=== PATIENT | male | born 1940 | race Caucasian/White ===

== ENCOUNTER → 2021-06-29 10:38 | Outpatient (BNVA) | payer MEDICARE, OTHER, SELFPAY | PROVIDERS: PCP Internal Medicine; Visit Provider Hospitalist | DX: R91.8 Other nonspecific abnormal finding of lung field (principal); J44.9 Chronic obstructive pulmonary disease, unspecified; R06.00 Dyspnea, unspecified; I48.91 Unspecified atrial fibrillation; I51.7 Cardiomegaly | CPT/HCPCS: 99202 ==

== ENCOUNTER → 2021-10-23 10:44 | Outpatient (BNVA) | payer MEDICARE, OTHER, SELFPAY | PROVIDERS: PCP Internal Medicine; Visit Provider Hospitalist | DX: J44.9 Chronic obstructive pulmonary disease, unspecified (principal); R91.8 Other nonspecific abnormal finding of lung field; R06.00 Dyspnea, unspecified; I48.91 Unspecified atrial fibrillation; I51.7 Cardiomegaly; G47.33 Obstructive sleep apnea (adult) (pediatric) | CPT/HCPCS: 99212 ==

== ENCOUNTER → 2022-07-02 13:55 | Outpatient (BNVA) | payer MEDICARE, SELFPAY | PROVIDERS: PCP Internal Medicine; Visit Provider Hospitalist | DX: J44.9 Chronic obstructive pulmonary disease, unspecified (principal); R91.8 Other nonspecific abnormal finding of lung field; R06.00 Dyspnea, unspecified; I48.91 Unspecified atrial fibrillation; I51.7 Cardiomegaly; G47.33 Obstructive sleep apnea (adult) (pediatric) | CPT/HCPCS: 99212 ==

== ENCOUNTER → 2022-12-31 09:50 | Outpatient (BNVA) | payer MEDICARE, SELFPAY | PROVIDERS: PCP Internal Medicine; Visit Provider Hospitalist | DX: R91.8 Other nonspecific abnormal finding of lung field (principal); J44.9 Chronic obstructive pulmonary disease, unspecified; R06.00 Dyspnea, unspecified; I48.91 Unspecified atrial fibrillation; I51.7 Cardiomegaly; G47.33 Obstructive sleep apnea (adult) (pediatric) | CPT/HCPCS: 99212 ==

== ENCOUNTER 2023-08-13 09:37 | Outpatient (AMB) | payer MEDICARE, SELFPAY ==
--- NOTE | 2023-08-13 09:54 | A.OFFVIS_ITS ---
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 The patient is complaining of dyspnea on exertion. Moderate severity. He was evaluated With pulmonary function studies. I personally reviewed them. He appears to have a reversible obstruction based on the fact that his FEV1 pre bronchodilators is 69% and improved to 74% after bronchodilators were administered. This suggest hyperreactive airways which are seen with asthma. In addition to that he does have a mild restrictive ventilatory defect. He did have a CT scan of the chest done as part of the evaluation. I did review the CT scan report closely with the patient. It appears that he does have some areas of scarring and atelectasis which could be indeed some degree of pneumoconiosis although no asbestos plaques mention. It was mentioned that the patient does have increased cardiac size moderate in severity. 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 Also part of the workup included a nuclear stress test. This is done back in December 2020 which demonstrated some reversible changes. He is on cardioprotective medications including metoprolol. therefore, will hold off on beta blockers so we do not cause any increased cardiac irritability. but same token and the patient continues to be symptomatic it may be too that he may be sensitive to the metoprolol also increasing the risk of airway obstruction. will provide him with copies of the stress test and a CT scan to the patient and he will be able discussing further with Cardiology. 10/23/2021 the patient is here for a pulmonary follow-up visit. Overall the patient has been doing better. He is responding well to the Spiriva. He is also using his Symbicort as needed. Unfortunately, [facility] and he would likely have to change to a different agent such as Wixela when he runs out. Cardiac status has been stable. Patient does have a history of sleep apnea. He had a CPAP machine that is very old. He may look into registering the machine to see if his able to get a replacement machine based on the recall. In the meantime the patient has not been using any PAP therapy for some time. He denies any daytime drowsiness. At this point the patient does have a history of cardiac disease therefore I will have him do an overnight oximetry see if he has any evidence of tachycardia or hypoxia to suggest active sleep apnea. The patient would like to hold off on a formal sleep study at this time. However, if the overnight oximetry is abnormal then we should follow it up with a formal sleep study. 07/02/2022 the patient is here for a pulmonary follow-up visit. Overall he is feeling better. He was having increasing chest congestion shortness of breath. He did follow-up with primary care doctor who started her back on Spiriva. He had been on Symbicort Spiriva but then stop the inhalers as he was feeling better. Seems to be doing just fine on just Spiriva so will continue that for now. We did follow-up with his overnight oximetry. The patient did have some minimal degree of desaturation where he spent about 6 minutes below 88%. I did recommend patient undergo a sleep study. He does have a history of sleep apnea. Although he does not uses CPAP. Patient does have an elevated [place] score of 9/24. Although the patient is reluctant to have a sleep study at this time. We did talk about a mouth device. The patient already has a mouth guard. We did talk about elastic mandibular advancing devices that he get for the dentist and may provide him some support to his sleep apnea symptoms and findings. However, he understands that the goal standard will be going back to the CPAP therefore her consider doing a sleep study let me know. We again looked at his last CT scan back in May 2021. He has multiple pulmonary nodules. His CT scan was [facility]. The patient does need to have a repeat CT scan at this time. He is agreeable to do so but he would like to do a closer to home in [place]. 12/31/2022 the patient is here for pulmon jagdish follow-up visit. The patient overall is doing well. He has stopped the Spiriva for some time. Folic does affecting his bladder. He recently was seen by Urology was placed on Flomax along with finasteride. Seems like he is getting good flows at this time. Off the Spiriva he felt that his breathing got worse. The patient also gets shortness of breath when trying to tie his shoes or laying down flat. Explained to him that this is due to his of increased abdominal pressure. The patient has been trying to walk regularly although he does have significant issues with his hips. The patient did have a CT scan of the chest that I personally viewed. Appears that his pulmonary nodules are stable which is reassuring. The patient will go ahead and restart the Spiriva every other day and see if this is effective for his breathing and hopefully does not affect his system. If any issues arise patient is call the office. 08/13/2023 the patient is here for pulmonary follow-up visit. Overall the patient has been doing well from a respiratory status. He did stop the Spiriva altogether because the issues with urinary retention. Seems to be doing fairly well off the inhalers per the patient. He also had a CT scan of the chest personally by me demonstrating no significant pulmonary nodules. Overall reassuring. No further CT scans to follow-up pulmonary nodules necessary. Although was noted on the report that he has dilated ascending aorta measuring 4 cm in size. 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 I did reassure him that this has not changed when compared to his previous CT scan which is reassuring. Still something that should be monitor. His blood pressure is stable. On examination he did have some wheezing on examination. I did offer him to have a rescue inhaler but he opted to think about it since he is feeling well. I did give him a prescription on paper if he changes his mind. He can also call the office so we can provide him with prescriptions to the pharmacy if that is the case. Otherwise the patient is doing well will follow-up in a year's time. [facility] Medical History (Updated 08/13/23 @ 17:23 by Scott Peters MD) Ascending aorta dilatation LATOYA (obstructive sleep apnea) Cardiomegaly Afib Dyspnea Pulmonary nodules COPD (chronic obstructive pulmonary disease) Social History (Updated 10/23/21 @ 11:25 by FREDIS Marcos) Patient Tobacco Use Status: Never used Tobacco Review of Systems Const Denies night sweats ENT Denies change in voice, Denies lip swelling, Denies mouth pain, Reports nasal congestion, Reports nasal discharge and Denies tongue swelling Card Denies chest pain and Denies dyspnea on exertion Resp Denies cough and Denies dyspnea on exertion GI Denies abdominal pain Musc Denies no additional complaints Neuro Denies Neuro-related abnormal movements Psych Denies no additional complaints Hamzah/Lymph Denies easy bleeding and Denies lymphadenopathy Aller/Immun Denies lip swelling and Denies tongue swelling Physical Exam Vital Signs: Last Vital Signs Pulse 71 08/13/23 09:56 BP 124/60 08/13/23 09:56 Pulse Ox 95 08/13/23 09:56 Oxygen Delivery Method Room Air 08/13/23 09:56 BMI result Body Mass Index 35.2 Const General: alert HEENT Head: Yes normocephalic Neck Neck: Yes normal visual inspection, Yes full ROM and Yes no lymphadenopathy Chest Chest palpation & inspection: normal inspection of the chest Resp Effort & Inspection: normal respiratory effort Auscultation: wheezes and diminished lung sounds Cardio Rate: regular rate Rhythm: regular rhythm Heart sounds: S1 normal heart sound present and S2 normal heart sound present GI Palpation (GI): Soft to palpation and nontender Auscultation: normal bowel sounds Skin General skin exam: rashes and/or lesions noted Extrem General: Yes no clubbing, cyanosis or edema Assessment & Plan Assessment & Plan (1) COPD (chronic obstructive pulmonary disease): Code(s): J44.9 - Chronic obstructive pulmonary disease, unspecified Qualifiers: COPD type: chronic bronchitis Chronic bronchitis type: simple Qualified Code(s): J41.0 - Simple chronic bronchitis (2) Pulmonary nodules: Code(s): R91.8 - Other nonspecific abnormal finding of lung field (3) Dyspnea: Comment: better Code(s): R06.00 - Dyspnea, unspecified Qualifiers: Dyspnea type: dyspnea on exertion Qualified Code(s): R06.09 - Other forms of dyspnea (4) Afib: Code(s): I48.91 - Unspecified atrial fibrillation Qualifiers: Atrial fibrillation type: unspecified Qualified Code(s): I48.91 - Unspecified atrial fibrillation (5) Cardiomegaly: Code(s): I51.7 - Cardiomegaly (6) LATOYA (obstructive sleep apnea): Code(s): G47.33 - Obstructive sleep apnea (adult) (pediatric) (7) Ascending aorta dilatation: Code(s): I77.810 - Thoracic aortic ectasia Plan stopped SPIRIVA due to adverse effecr stopped Symbicort should use SUDHEER as needed CT chest stable consider Home PSG F/U with Cardiology re: dilated ascendming Aorta F/U 10-12 months Medications: New levalbuterol tartrate 45 mcg/actuation (Xopenex HFA) 2 puffs inhalation Q6H 30 days PRN 15 grams 11RF shortness of breath or wheezing J45.909 - Unspecified asthma, uncomplicated Discontinued tiotropium bromide (Spiriva with HandiHaler) puncture 1 cap using device; one dose = 2 inhalations Discontinued Reason: Doctor's Order 1 cap inhalation DAILY 30 days 30 inhalations 11RF Coding Level of Care Code Est Pt Level 4 (91180) Diagnoses Simple chronic bronchitis J41.0 COPD type: chronic bronchitis Chronic bronchitis type: simple Pulmonary nodules R91.8 Dyspnea on exertion R06.09 Dyspnea type: dyspnea on exertion Atrial fibrillation, unspecified type I48.91 Atrial fibrillation type: unspecified Cardiomegaly I51.7 LATOYA (obstructive sleep apnea) G47.33 Ascending aorta dilatation I77.810 Time Spent (min) 16
[2023-08-13 09:56] VITALS: BP 124/60; PULSE 71; O2SAT 95; BMI 35.2
== END 2023-08-13 10:19 | disposition home or self-care (01) ==
PROVIDERS: PCP Internal Medicine; Visit Provider Hospitalist
DX: J41.0 Simple chronic bronchitis (principal); R91.8 Other nonspecific abnormal finding of lung field; R06.09 Other forms of dyspnea; I48.91 Unspecified atrial fibrillation; I51.7 Cardiomegaly; G47.33 Obstructive sleep apnea (adult) (pediatric); I77.810 Thoracic aortic ectasia
CPT/HCPCS: 99214

== ENCOUNTER → 2023-08-13 09:37 | Outpatient (BNVA) | payer MEDICARE, SELFPAY | PROVIDERS: PCP Internal Medicine; Visit Provider Hospitalist | DX: R91.8 Other nonspecific abnormal finding of lung field (principal); J41.0 Simple chronic bronchitis; R06.09 Other forms of dyspnea; I48.91 Unspecified atrial fibrillation; I51.7 Cardiomegaly; I77.810 Thoracic aortic ectasia; G47.33 Obstructive sleep apnea (adult) (pediatric) | CPT/HCPCS: 99212 ==